=== PATIENT | female | born 1970 | race Caucasian/White ===

== ENCOUNTER → 2017-10-09 13:10 | Emergency (ER) | payer SELFPAY ==
[~2017-10-09] VITALS: Ht 170.2 cm; Wt 68.9 kg
[2017-10-09 13:35] VITALS: BP 158/98
[2017-10-09 13:50] LABS: POINT-OF-CARE METER ID UU13113778
[2017-10-09 14:16] LABS: MCH 27.9 PG (29.0-34.0); MCHC 32.2 G/DL (30.0-36.0); MCV 86.5 FL (83-99); MEAN PLAT.VOLUME 9.3 uM^3 (9.5-12.4); PLATELET COUNT 372 K/uL (156-360); RBC DIS.WIDTH-CV 14.3 % (11.8-14.6); RBC DIS.WIDTH-SD 44.1 % (39-53); RED BLOOD COUNT 3.12 M/uL (3.80-5.20)
[2017-10-09 14:24] LABS: CHLORIDE 107 mEq/L (99-109); SODIUM 140 mEq/L (136-147)
[2017-10-09 14:26] LABS: GLUCOSE 105 mg/dL (70-99)
[2017-10-09 14:27] LABS: ANION GAP 12 MEQ/L (2-14)
[2017-10-09 14:31] LABS: GFR ESTIMATE (CALCULATED) 4 mL/min/; UREA NITROGEN (BUN) 68 mg/dL (9-23)
[2017-10-09 14:43] LABS: POTASSIUM 6.7 mEq/L (3.7-5.4)
== END | disposition left against medical advice (07) ==
LOC: EME 13:10
DX: R06.02 Shortness of breath (principal); K08.89 Other specified disorders of teeth and supporting structures; Z53.21 Procedure and treatment not carried out due to patient leaving prior to being seen by health care provider
CPT/HCPCS: 71020; 80048; 85027; 99281

== ENCOUNTER 2017-10-11 01:48 | Inpatient (IN) | payer OTHER ==
[2017-10-11] VITALS (20 sets, daily range): BP systolic 91–199; BP diastolic 58–138
[~2017-10-11] VITALS: Ht 167.6 cm; Wt 55.3 kg
[2017-10-11 02:08] LABS: BASE EXCESS -12.4 mEq/L (-3 to +3); BICARBONATE 19.3 mEq/L (22-26); CARBOXY HGB 4.1 % (0-5); COMMENTS - BLOOD GASES C+; METHEMOGLOBIN 0.8 % (0-1.5); PCO2 82 mm Hg (35-45); PO2 104 mm Hg (80-100); SITE LR; pH 6.98 (7.35-7.45)
[2017-10-11 02:09] LABS: DEVICE MASKVENT; FI02 100 %; MODE NSPONT; PEEP 5 CM/H20; PRES. SUPPORT 14 CM/H2O; TOTAL RESP RATE 27 resp/min
[2017-10-11 02:17] LABS: HEMATOCRIT 29.5 % (36.0-46.0); MCH 27.1 PG (29.0-34.0); MCHC 30.5 G/DL (30.0-36.0); MCV 88.9 FL (83-99); PLATELET COUNT 471 K/uL (156-360); RBC DIS.WIDTH-CV 14.5 % (11.8-14.6); RBC DIS.WIDTH-SD 46.5 % (39-53); RED BLOOD COUNT 3.32 M/uL (3.80-5.20); WHITE BLOOD COUNT 16.9 K/uL (4.1-10.2)
[2017-10-11 02:21] LABS: CARBON DIOXIDE (BICARBONATE) 20.5 MEQ/L (20-31)
[2017-10-11 02:29] LABS: CHLORIDE 108 mEq/L (99-109); POTASSIUM 5.5 mEq/L (3.7-5.4); SODIUM 140 mEq/L (136-147)
[2017-10-11 02:35] LABS: CREATININE 11.6 mg/dL (0.6-1.3); GFR ESTIMATE (CALCULATED) 4 mL/min/
[2017-10-11 02:36] LABS: UREA NITROGEN (BUN) 70 mg/dL (9-23)
[2017-10-11 02:38] LABS: GLUCOSE 203 mg/dL (70-99)
[2017-10-11 02:43] LABS: TROP-I INTERPRETATION NEGATIVE; TROPONIN-I 0.05 ng/mL (0.0-0.30)
[2017-10-11 03:50] LABS: APPEARANCE SL.HAZY ((CLEAR)); BILIRUBIN NEGATIVE; BLOOD NEGATIVE; COLOR YELLOW ((YELLOW)); GLUCOSE (STRIP) 150; KETONES NEGATIVE; LEUKOCYTES TRACE; NITRITE NEGATIVE; PROTEIN (STRIP) >=500; SPECIFIC GRAVITY 1.024 (1.000-1.030); UROBILINOGEN 0.2 MG/DL (0.2-1.0)
[2017-10-11 03:54] LABS: BACTERIA 1+ /HPF; EPITHELIAL CELLS RARE /HPF; MUCUS TRACE /LPF; UCUL ADDED? YES
[2017-10-11 04:56] LABS: BICARBONATE 22.9 mEq/L (22-26); CARBOXY HGB 2.3 % (0-5); COMMENTS - BLOOD GASES C+; METHEMOGLOBIN 0.8 % (0-1.5); PCO2 56 mm Hg (35-45); PO2 70 mm Hg (80-100); SITE RR; pH 7.22 (7.35-7.45)
[2017-10-11 04:57] LABS: DEVICE VENT; FI02 100 %; MECHANICAL RATE 18 resp/min; MODE A/C; PEEP 5 CM/H20; TIDAL VOLUME 400 ML; TOTAL RESP RATE 18 resp/min
[2017-10-11 09:30] LABS: UR CREATININE CONCENTRATION 44.9 MG/DL
[2017-10-11 10:12] LABS: UR CREATININE CONCENTRATION 44.9 MG/DL
[2017-10-11 10:21] LABS: CHLORIDE 106 MEQ/L (99-109); CREATININE 11.4 MG/DL (0.6-1.3); GFR ESTIMATE (CALCULATED) 4 mL/min/; GLUCOSE 159 mg/dL (70-99); PHOSPHORUS 9.6 mg/dL (2.5-4.9); SODIUM 141 MEQ/L (136-147); UREA NITROGEN (BUN) 72 mg/dL (9-23)
[2017-10-11 10:22] LABS: POTASSIUM 7.2 MEQ/L (3.7-5.4)
[2017-10-11 10:52] LABS: BENZODIAZEPINES, URINE SCREEN Negative (200 ng/mL)
[2017-10-11 11:52] LABS: CREATINE KINASE 97 IU/L (1-294); IRON 28 MCG/DL (35-150); TRANSFERRIN SATUR. 16 % (20-55)
[2017-10-11 12:35] LABS: ANTI-HEPATITIS B CORE (TOTAL) Nonreactive
[2017-10-11 12:36] LABS: HEPATITIS B SURFACE ANTIGEN Nonreactive
[2017-10-11 12:37] LABS: ANTI-HEPATITIS A VIRUS (IGM) Nonreactive
[2017-10-11 12:38] LABS: ANTI-HEPATITIS B CORE (IGM) Nonreactive
[2017-10-11 12:53] LABS: HEPATITIS C ANTIBODY REACTIVE
[2017-10-11 13:47] LABS: HEPATITIS B SURFACE ANTIGEN Nonreactive
[2017-10-11 13:57] LABS: HEPATITIS B SURFACE ANTIBODY REACTIVE
[2017-10-11 21:14] LABS: CHLORIDE 100 MEQ/L (99-109); POTASSIUM 5.9 MEQ/L (3.7-5.4); SODIUM 135 MEQ/L (136-147)
[2017-10-11 21:19] LABS: GFR ESTIMATE (CALCULATED) 6 mL/min/; UREA NITROGEN (BUN) 49 mg/dL (9-23)
[2017-10-11 21:22] LABS: CREATININE 8.1 MG/DL (0.6-1.3); GLUCOSE 109 mg/dL (70-99)
[2017-10-12] VITALS (23 sets, daily range): BP systolic 96–159; BP diastolic 63–103
[2017-10-12 06:31] LABS: C4 COMPLEMENT 38 MG/DL (10-40)
[2017-10-12 07:29] LABS: ALBUMIN 1.9 G/DL (3.2-4.8); ALKALINE PHOSPHATASE 67 IU/L (3-129); ALT (GPT) 11 IU/L (3-49); AST (GOT) 16 IU/L (2-34); CHLORIDE 100 MEQ/L (99-109); CREATININE 8.4 MG/DL (0.6-1.3); GFR ESTIMATE (CALCULATED) 5 mL/min/; GLUCOSE 100 mg/dL (70-99); PHOSPHORUS 7.4 mg/dL (2.5-4.9); POTASSIUM 5.5 MEQ/L (3.7-5.4); SODIUM 135 MEQ/L (136-147); TOTAL BILIRUBIN 0.2 MG/DL (0.0-1.0); TOTAL PROTEIN 5.4 G/DL (6.4-8.3); UREA NITROGEN (BUN) 55 mg/dL (9-23); VANCOMYCIN, TROUGH 20.1 MCG/ML (10-20)
[2017-10-12 07:57] LABS: BASOPHIL (%) 0.3 % (0-1); EOSINOPHIL (%) 0.3 % (0-5); HEMOGLOBIN 7.9 G/DL (11.9-15.5); IMMATURE GRANULOCYTE (%) 0.5 % (0.0-0.7); LYMPHOCYTE (%) 20.5 % (15-42); LYMPHOCYTE COUNT 3.1 K/uL (1.0-2.8); MCH 27.3 PG (29.0-34.0); MCHC 32.9 G/DL (30.0-36.0); MONOCYTE (%) 6.4 % (3-12); NEUTROPHIL COUNT 10.8 K/uL (1.8-6.4); NRBC (%) 0.1 /100 WBC (0-0); PLATELET COUNT 394 K/uL (156-360); RBC DIS.WIDTH-SD 41.7 % (39-53); RED BLOOD COUNT 2.89 M/uL (3.80-5.20)
[2017-10-12 08:01] LABS: INTACT PARATHYROID HORMONE 534 pg/mL (10-69)
[2017-10-12 08:24] LABS: FOLIC ACID (FOLATE) 16.4 NG/ML (5.0-22.0)
[2017-10-13] VITALS (18 sets, daily range): BP systolic 104–158; BP diastolic 55–97
[2017-10-13 05:08] LABS: BASOPHIL (%) 0.2 % (0-1); EOSINOPHIL (%) 0.5 % (0-5); EOSINOPHIL COUNT 0.1 K/uL (0-0.3); HEMATOCRIT 23.7 % (36.0-46.0); HEMOGLOBIN 7.6 G/DL (11.9-15.5); IMMATURE GRANULOCYTE (%) 0.5 % (0.0-0.7); LYMPHOCYTE (%) 24.4 % (15-42); LYMPHOCYTE COUNT 3.8 K/uL (1.0-2.8); MCH 26.7 PG (29.0-34.0); MCHC 32.1 G/DL (30.0-36.0); MCV 83.2 FL (83-99); MONOCYTE (%) 8.8 % (3-12); MONOCYTE COUNT 1.4 K/uL (0-0.8); NEUTROPHIL (%) 65.6 % (45-76); NEUTROPHIL COUNT 10.1 K/uL (1.8-6.4); PLATELET COUNT 346 K/uL (156-360); RBC DIS.WIDTH-SD 41.5 % (39-53); RED BLOOD COUNT 2.85 M/uL (3.80-5.20); WHITE BLOOD COUNT 15.3 K/uL (4.1-10.2)
[2017-10-13 06:35] LABS: ALBUMIN 1.8 G/DL (3.2-4.8); CHLORIDE 101 MEQ/L (99-109); GFR ESTIMATE (CALCULATED) 8 mL/min/; GLUCOSE 85 mg/dL (70-99); PHOSPHORUS 6.1 mg/dL (2.5-4.9); POTASSIUM 4.7 MEQ/L (3.7-5.4); SODIUM 137 MEQ/L (136-147); UREA NITROGEN (BUN) 36 mg/dL (9-23); VANCOMYCIN, TROUGH 14.2 MCG/ML (10-20)
[2017-10-13 06:36] LABS: CREATININE 6.3 MG/DL (0.6-1.3)
[2017-10-13 15:47] LABS: 24 HR VOLUME 600 MLS
[2017-10-13 16:00] LABS: URINE TOTAL PROTEIN 1396 MG/DL (0-10)
[2017-10-13 19:35] LABS: HCV RNA (IU/mL) 7249423 IU/mL (<15)
[2017-10-14 06:55] LABS: ALBUMIN 1.8 G/DL (3.2-4.8); CHLORIDE 100 MEQ/L (99-109); GFR ESTIMATE (CALCULATED) 6 mL/min/; GLUCOSE 83 mg/dL (70-99); MAGNESIUM 2.2 mg/dl (1.3-2.7); PHOSPHORUS 7.7 mg/dL (2.5-4.9); POTASSIUM 5.3 MEQ/L (3.7-5.4); SODIUM 136 MEQ/L (136-147); UREA NITROGEN (BUN) 46 mg/dL (9-23)
[2017-10-14 07:03] LABS: BASOPHIL (%) 0.3 % (0-1); BASOPHIL COUNT 0.1 K/uL (0-0.1); EOSINOPHIL (%) 1.9 % (0-5); EOSINOPHIL COUNT 0.3 K/uL (0-0.3); HEMATOCRIT 27.3 % (36.0-46.0); HEMOGLOBIN 8.8 G/DL (11.9-15.5); LYMPHOCYTE (%) 14.2 % (15-42); LYMPHOCYTE COUNT 2.3 K/uL (1.0-2.8); MCH 27.3 PG (29.0-34.0); MCHC 32.2 G/DL (30.0-36.0); MCV 84.8 FL (83-99); MONOCYTE (%) 6.7 % (3-12); MONOCYTE COUNT 1.1 K/uL (0-0.8); NEUTROPHIL (%) 75.9 % (45-76); NEUTROPHIL COUNT 12.4 K/uL (1.8-6.4); PLATELET COUNT 334 K/uL (156-360); RBC DIS.WIDTH-CV 14.2 % (11.8-14.6); RBC DIS.WIDTH-SD 43.9 % (39-53); RED BLOOD COUNT 3.22 M/uL (3.80-5.20); WHITE BLOOD COUNT 16.3 K/uL (4.1-10.2)
[2017-10-14 07:10] LABS: CREATININE 7.8 MG/DL (0.6-1.3)
[2017-10-14 07:44] VITALS: BP 130/78
[2017-10-14 08:13] LABS: HCV RNA (LOG IU/mL) 6.86 (<1.18)
[2017-10-14 10:33] LABS: HIV-1/2 AB/AG COMBO Nonreactive
[2017-10-14 12:22] VITALS: BP 128/80
[2017-10-14 16:50] VITALS: BP 128/60
[2017-10-14 18:14] LABS: MYELOPEROXIDASE ANTIBODY (MPO) <1.0 AI (<1.0); PROTEINASE-3 ANTIBODY+ <1.0 AI (<1.0)
[2017-10-14 23:44] VITALS: BP 136/83
[2017-10-15 06:07] LABS: BASOPHIL (%) 0.3 % (0-1); EOSINOPHIL (%) 3.9 % (0-5); EOSINOPHIL COUNT 0.5 K/uL (0-0.3); HEMATOCRIT 24.8 % (36.0-46.0); HEMOGLOBIN 7.7 G/DL (11.9-15.5); MCH 26.4 PG (29.0-34.0); MCV 84.9 FL (83-99); MONOCYTE (%) 8.4 % (3-12); MONOCYTE COUNT 1.1 K/uL (0-0.8); NEUTROPHIL (%) 63.4 % (45-76); NEUTROPHIL COUNT 8.4 K/uL (1.8-6.4); PLATELET COUNT 301 K/uL (156-360); RBC DIS.WIDTH-CV 14.1 % (11.8-14.6); RBC DIS.WIDTH-SD 43.1 % (39-53); RED BLOOD COUNT 2.92 M/uL (3.80-5.20); WHITE BLOOD COUNT 13.2 K/uL (4.1-10.2)
[2017-10-15 06:54] LABS: ALBUMIN 1.7 G/DL (3.2-4.8); CHLORIDE 100 MEQ/L (99-109); GFR ESTIMATE (CALCULATED) 8 mL/min/; GLUCOSE 87 mg/dL (70-99); PHOSPHORUS 5.7 mg/dL (2.5-4.9); POTASSIUM 4.5 MEQ/L (3.7-5.4); SODIUM 135 MEQ/L (136-147); UREA NITROGEN (BUN) 30 mg/dL (9-23)
[2017-10-15 06:56] LABS: CREATININE 5.7 MG/DL (0.6-1.3)
[2017-10-15 08:12] VITALS: BP 123/66
[2017-10-15 15:45] VITALS: BP 127/70
[2017-10-15 21:25] VITALS: BP 174/85
[2017-10-15 22:08] VITALS: BP 160/80
[2017-10-15 23:35] VITALS: BP 152/74
[2017-10-16 08:05] VITALS: BP 160/86
[2017-10-16 08:42] LABS: BASOPHIL (%) 0.5 % (0-1); BASOPHIL COUNT 0.1 K/uL (0-0.1); EOSINOPHIL (%) 5.4 % (0-5); EOSINOPHIL COUNT 0.6 K/uL (0-0.3); HEMATOCRIT 25.1 % (36.0-46.0); HEMOGLOBIN 7.6 G/DL (11.9-15.5); IMMATURE GRANULOCYTE (%) 1.6 % (0.0-0.7); LYMPHOCYTE (%) 20.2 % (15-42); LYMPHOCYTE COUNT 2.4 K/uL (1.0-2.8); MCH 26.3 PG (29.0-34.0); MCHC 30.3 G/DL (30.0-36.0); MCV 86.9 FL (83-99); MONOCYTE (%) 10.4 % (3-12); MONOCYTE COUNT 1.2 K/uL (0-0.8); NEUTROPHIL (%) 61.9 % (45-76); NEUTROPHIL COUNT 7.2 K/uL (1.8-6.4); NRBC (%) 0.2 /100 WBC (0-0); PLATELET COUNT 312 K/uL (156-360); RBC DIS.WIDTH-CV 14.4 % (11.8-14.6); RBC DIS.WIDTH-SD 44.1 % (39-53); RED BLOOD COUNT 2.89 M/uL (3.80-5.20); WHITE BLOOD COUNT 11.7 K/uL (4.1-10.2)
[2017-10-16 09:09] LABS: ALBUMIN 1.9 G/DL (3.2-4.8); CHLORIDE 98 MEQ/L (99-109); GFR ESTIMATE (CALCULATED) 7 mL/min/; MAGNESIUM 2.1 mg/dl (1.3-2.7); PHOSPHORUS 5.6 mg/dL (2.5-4.9); POTASSIUM 4.4 MEQ/L (3.7-5.4); SODIUM 135 MEQ/L (136-147); UREA NITROGEN (BUN) 36 mg/dL (9-23)
[2017-10-16 09:12] LABS: CREATININE 6.8 MG/DL (0.6-1.3); GLUCOSE 109 mg/dL (70-99)
[2017-10-16 15:29] VITALS: BP 127/70
[2017-10-16 21:00] VITALS: BP 130/74
[2017-10-17 00:15] VITALS: BP 134/71
[2017-10-17 04:50] LABS: Cryoglobulin, Qualitative None Detected (None Detected)
[2017-10-17 06:58] LABS: BASOPHIL (%) 0.5 % (0-1); BASOPHIL COUNT 0.1 K/uL (0-0.1); EOSINOPHIL (%) 5.3 % (0-5); EOSINOPHIL COUNT 0.6 K/uL (0-0.3); IMMATURE GRANULOCYTE (%) 2.1 % (0.0-0.7); LYMPHOCYTE (%) 27.9 % (15-42); LYMPHOCYTE COUNT 3.4 K/uL (1.0-2.8); MCH 26.9 PG (29.0-34.0); MCHC 30.8 G/DL (30.0-36.0); MCV 87.5 FL (83-99); MONOCYTE (%) 11.9 % (3-12); MONOCYTE COUNT 1.4 K/uL (0-0.8); NEUTROPHIL (%) 52.3 % (45-76); NEUTROPHIL COUNT 6.3 K/uL (1.8-6.4); NRBC (%) 0.2 /100 WBC (0-0); PLATELET COUNT 286 K/uL (156-360); RBC DIS.WIDTH-CV 14.6 % (11.8-14.6); RBC DIS.WIDTH-SD 44.4 % (39-53); RED BLOOD COUNT 2.97 M/uL (3.80-5.20); WHITE BLOOD COUNT 12.1 K/uL (4.1-10.2)
[2017-10-17 07:15] LABS: CHLORIDE 101 MEQ/L (99-109); GFR ESTIMATE (CALCULATED) 9 mL/min/; GLUCOSE 86 mg/dL (70-99); PHOSPHORUS 5.1 mg/dL (2.5-4.9); POTASSIUM 4.6 MEQ/L (3.7-5.4); SODIUM 136 MEQ/L (136-147); UREA NITROGEN (BUN) 21 mg/dL (9-23)
[2017-10-17 07:17] LABS: CREATININE 5.4 MG/DL (0.6-1.3)
[2017-10-17 08:24] VITALS: BP 129/85
[2017-10-17 15:53] VITALS: BP 132/80
[2017-10-17 21:45] VITALS: BP 125/71
[2017-10-18 00:02] VITALS: BP 121/64
[2017-10-18 05:45] LABS: BASOPHIL (%) 0.4 % (0-1); BASOPHIL COUNT 0.1 K/uL (0-0.1); EOSINOPHIL (%) 5.2 % (0-5); EOSINOPHIL COUNT 0.7 K/uL (0-0.3); HEMATOCRIT 24.2 % (36.0-46.0); HEMOGLOBIN 7.4 G/DL (11.9-15.5); IMMATURE GRANULOCYTE (%) 4.5 % (0.0-0.7); LYMPHOCYTE (%) 25.8 % (15-42); LYMPHOCYTE COUNT 3.7 K/uL (1.0-2.8); MCH 26.5 PG (29.0-34.0); MCHC 30.6 G/DL (30.0-36.0); MCV 86.7 FL (83-99); MONOCYTE (%) 11.3 % (3-12); MONOCYTE COUNT 1.6 K/uL (0-0.8); NEUTROPHIL (%) 52.8 % (45-76); NEUTROPHIL COUNT 7.5 K/uL (1.8-6.4); NRBC (%) 0.3 /100 WBC (0-0); PLATELET COUNT 312 K/uL (156-360); RBC DIS.WIDTH-CV 14.4 % (11.8-14.6); RBC DIS.WIDTH-SD 43.3 % (39-53); RED BLOOD COUNT 2.79 M/uL (3.80-5.20); WHITE BLOOD COUNT 14.2 K/uL (4.1-10.2)
[2017-10-18 06:34] LABS: CHLORIDE 101 MEQ/L (99-109); GFR ESTIMATE (CALCULATED) 7 mL/min/; GLUCOSE 91 mg/dL (70-99); POTASSIUM 4.9 MEQ/L (3.7-5.4); SODIUM 135 MEQ/L (136-147)
[2017-10-18 06:39] LABS: CREATININE 6.5 MG/DL (0.6-1.3); UREA NITROGEN (BUN) 34 mg/dL (9-23)
[2017-10-18 07:55] VITALS: BP 137/68
[2017-10-18 17:04] VITALS: BP 129/70
[2017-10-18 23:45] VITALS: BP 129/74
[2017-10-19 05:58] LABS: BASOPHIL (%) 0.4 % (0-1); BASOPHIL COUNT 0.1 K/uL (0-0.1); EOSINOPHIL (%) 3.7 % (0-5); EOSINOPHIL COUNT 0.5 K/uL (0-0.3); HEMOGLOBIN 8.1 G/DL (11.9-15.5); IMMATURE GRANULOCYTE (%) 2.9 % (0.0-0.7); LYMPHOCYTE (%) 25.4 % (15-42); LYMPHOCYTE COUNT 3.7 K/uL (1.0-2.8); MCH 27.6 PG (29.0-34.0); MCHC 31.2 G/DL (30.0-36.0); MCV 88.4 FL (83-99); MONOCYTE (%) 10.5 % (3-12); MONOCYTE COUNT 1.5 K/uL (0-0.8); NEUTROPHIL (%) 57.1 % (45-76); NEUTROPHIL COUNT 8.4 K/uL (1.8-6.4); PLATELET COUNT 307 K/uL (156-360); RBC DIS.WIDTH-CV 15.1 % (11.8-14.6); RBC DIS.WIDTH-SD 44.9 % (39-53); RED BLOOD COUNT 2.94 M/uL (3.80-5.20); WHITE BLOOD COUNT 14.7 K/uL (4.1-10.2)
[2017-10-19 06:31] LABS: CHLORIDE 99 MEQ/L (99-109); GFR ESTIMATE (CALCULATED) 12 mL/min/; GLUCOSE 91 mg/dL (70-99); POTASSIUM 4.5 MEQ/L (3.7-5.4); SODIUM 134 MEQ/L (136-147); UREA NITROGEN (BUN) 17 mg/dL (9-23)
[2017-10-19 06:32] LABS: CREATININE 4.2 MG/DL (0.6-1.3)
[2017-10-19 07:50] VITALS: BP 120/80
[2017-10-19 22:36] VITALS: BP 135/77
[2017-10-20 01:24] VITALS: BP 126/65
[2017-10-20 07:33] VITALS: BP 131/67
[2017-10-20 09:34] LABS: BASOPHIL (%) 0.6 % (0-1); BASOPHIL COUNT 0.1 K/uL (0-0.1); EOSINOPHIL (%) 3.8 % (0-5); EOSINOPHIL COUNT 0.5 K/uL (0-0.3); HEMATOCRIT 27.4 % (36.0-46.0); HEMOGLOBIN 8.5 G/DL (11.9-15.5); IMMATURE GRANULOCYTE (%) 2.2 % (0.0-0.7); LYMPHOCYTE (%) 24.6 % (15-42); LYMPHOCYTE COUNT 3.1 K/uL (1.0-2.8); MCH 27.7 PG (29.0-34.0); MCV 89.3 FL (83-99); MONOCYTE (%) 7.2 % (3-12); MONOCYTE COUNT 0.9 K/uL (0-0.8); NEUTROPHIL (%) 61.6 % (45-76); NEUTROPHIL COUNT 7.7 K/uL (1.8-6.4); PLATELET COUNT 350 K/uL (156-360); RBC DIS.WIDTH-SD 45.9 % (39-53); RED BLOOD COUNT 3.07 M/uL (3.80-5.20); WHITE BLOOD COUNT 12.5 K/uL (4.1-10.2)
[2017-10-20 09:55] LABS: CHLORIDE 98 MEQ/L (99-109); GLUCOSE 113 mg/dL (70-99); POTASSIUM 4.2 MEQ/L (3.7-5.4); SODIUM 132 MEQ/L (136-147)
[2017-10-20 09:56] LABS: GFR ESTIMATE (CALCULATED) 8 mL/min/; PHOSPHORUS 3.1 mg/dL (2.5-4.9); UREA NITROGEN (BUN) 27 mg/dL (9-23)
[2017-10-20 15:28] VITALS: BP 146/78
[2017-10-20 23:31] VITALS: BP 142/82
[2017-10-21 07:19] VITALS: BP 136/79
[2017-10-21 07:48] LABS: HEMATOCRIT 25.7 % (36.0-46.0); HEMOGLOBIN 7.8 G/DL (11.9-15.5); MCH 27.2 PG (29.0-34.0); MCHC 30.4 G/DL (30.0-36.0); MCV 89.5 FL (83-99); PLATELET COUNT 374 K/uL (156-360); RBC DIS.WIDTH-SD 47.8 % (39-53); RED BLOOD COUNT 2.87 M/uL (3.80-5.20); WHITE BLOOD COUNT 12.3 K/uL (4.1-10.2)
[2017-10-21 08:11] LABS: ALBUMIN 1.8 G/DL (3.2-4.8); CHLORIDE 98 MEQ/L (99-109); GFR ESTIMATE (CALCULATED) 6 mL/min/; GLUCOSE 151 mg/dL (70-99); PHOSPHORUS 3.4 mg/dL (2.5-4.9); POTASSIUM 4.5 MEQ/L (3.7-5.4); SODIUM 132 MEQ/L (136-147); UREA NITROGEN (BUN) 38 mg/dL (9-23)
[2017-10-21 08:21] LABS: CREATININE 7.2 MG/DL (0.6-1.3)
[2017-10-21 11:39] VITALS: BP 134/68
[2017-10-21 15:33] VITALS: BP 162/77
[2017-10-21 21:51] VITALS: BP 134/64
[2017-10-22 00:18] VITALS: BP 126/68
[2017-10-22 07:48] VITALS: BP 138/77
[2017-10-22] MEDS ORDERED: LOSARTAN POTASS25 MG PO (11:50)
[2017-10-22] MEDS ORDERED: NEPHRO-VITE,1 TABLET PO (11:50)
[2017-10-22] MEDS ORDERED: LABETALOL HCL100 MG PO (11:50)
[2017-10-22] MEDS ORDERED: FUROSEMIDE80 MG PO (11:50)
[2017-10-22] MEDS ORDERED: HECTOROL4 MCG/2 M1 IV (11:50)
[2017-10-22] MEDS ORDERED: ERGOCALCIF50000 UNIT PO (11:50)
[2017-10-22] MEDS ORDERED: CALCIUM ACETAT667 MG PO (11:50)
== END 2017-10-22 13:09 | disposition home or self-care (01) | DRG 208 ==
LOC: EDBD 01:48 → EME 01:48 → EDOF 02:36 → 4WEST 02:36 → 5EAST 02:36 → ENRESERV 02:37 → 4WEST 03:40 → ENRESERV 10-13 16:24 → 5EAST 10-13 20:03 → ENPENDDIS 10-22 → 5EAST 10-22 13:09
PROVIDERS: Emergency Medicine; Internal Medicine; Internal Medicine Critical Care Medicine; Specialist
DX: J96.01 Acute respiratory failure with hypoxia (principal); N18.6 End stage renal disease; J81.0 Acute pulmonary edema; J45.902 Unspecified asthma with status asthmaticus; N25.81 Secondary hyperparathyroidism of renal origin; I12.0 Hypertensive chronic kidney disease with stage 5 chronic kidney disease or end stage renal disease; N17.9 Acute kidney failure, unspecified; J90 Pleural effusion, not elsewhere classified; J98.11 Atelectasis; E87.4 Mixed disorder of acid-base balance; F11.20 Opioid dependence, uncomplicated; B18.2 Chronic viral hepatitis C; I16.0 Hypertensive urgency; J96.02 Acute respiratory failure with hypercapnia; E87.5 Hyperkalemia; F17.210 Nicotine dependence, cigarettes, uncomplicated; I34.0 Nonrheumatic mitral (valve) insufficiency; E87.70 Fluid overload, unspecified; J44.9 Chronic obstructive pulmonary disease, unspecified; F14.10 Cocaine abuse, uncomplicated; E83.51 Hypocalcemia; E88.09 Other disorders of plasma-protein metabolism, not elsewhere classified; E83.39 Other disorders of phosphorus metabolism; D63.1 Anemia in chronic kidney disease; D50.9 Iron deficiency anemia, unspecified; I36.1 Nonrheumatic tricuspid (valve) insufficiency; Z99.2 Dependence on renal dialysis
CPT/HCPCS: 36600; 71010; 71020; 76770; 80048; 80048 91; 80053; 80069; 80074; 80202; 80306 90; 81003; 81050; 82306; 82550 91; 82570; 82595 90; 82607; 82746; 82803; 82948; 83540; 83605; 83735; 83880; 83970; 84100; 84156; 84300; 84466; 84484; 85025; 85027; 86021 90; 86038; 86160; 86235; 86334; 86335; 86703; 86704; 86706; 86803; 87040; 87070; 87086; 87205; 87340; 87522 90; 87641; 93005; 93306; 94002; 94003; 94640; 94640 76; 94760; 94799; 97530 GP; 99202; 99281; 99285; C1788; J0456; J0610; J0690; J0696; J0881; J1100; J1170; J1270; J1644; J1756; J1940; J2250; J2405; J2704; J3010; J3105; J3370; J3475; J7050; J7644